=== PATIENT | male | born 1995 | race Caucasian/White ===

== ENCOUNTER 2019-01-03 01:39 | Emergency (ER) | payer OTHER ==
[2019-01-03 02:24] VITALS: BP 111/77; PULSE 68; TEMP 97.5; BMI 26.5
[2019-01-03] MEDS ORDERED: METOCLOPRAMIDE HCL INJECTION 10 MG/2 ML VIAL IM ONE (02:59)
[2019-01-03] MEDS ORDERED: ACETAMINOPHEN 325 MG TABLET (FP) PO ONE (02:59)
[2019-01-03] MEDS ORDERED: METOCLOPRAMIDE HCL INJECTION 10 MG/2 ML VIAL ONE (03:01)
[2019-01-03] MEDS ORDERED: ACETAMINOPHEN 325 MG TABLET (FP) ONE (03:01)
--- NOTE | 2019-01-03 03:16 | PDOC ---
History of Present Illness - General Chief Complaint: Lightheaded Stated Complaint: HIT HEAD,DIZZINES,HEADACHE Time Seen by Provider: 01/03/19 02:36 History Source: Patient Exam Limitations: No Limitations Past History - Past Medical History Allergies/Adverse Reactions: Allergies Allergy/AdvReac Type Severity Reaction Status Date / Time No Known Allergies Allergy Verified 01/03/19 01:54 Home Medications: Ambulatory Orders NK [No Known Home Medication] 01/03/19 COPD: No - Immunization History Immunization Up to Date: Yes - Suicide/Smoking/Psychosocial Hx Smoking History: Never smoked Have you smoked in the past 12 months: No Information on smoking cessation initiated: No Hx Alcohol Use: No Drug/Substance Use Hx: No *Physical Exam - Vital Signs Last Vital Signs Temp Pulse Resp BP Pulse Ox 97.5 F L 68 18 111/77 99 01/03/19 01:54 01/03/19 01:54 01/03/19 01:54 01/03/19 01:54 01/03/19 01:54 - Physical Exam General Appearance: No: Apparent Distress HEENT: positive: EOMI, VALDO Respiratory/Chest: positive: Lungs Clear, Normal Breath Sounds. negative: Respiratory Distress Cardiovascular: positive: Regular Rhythm, Regular Rate, S1, S2. negative: Murmur Gastrointestinal/Abdominal: positive: Normal Bowel Sounds, Soft. 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, Fully Oriented, Alert, Normal Mood/ Affect, Motor Strength 5/5, Other (negative Romberg test) ED Treatment Course - Medications Given in the ED: ED Medications Discontinued Medications Generic Name Dose Route Start Last Admin Trade Name Raimundo PRN Reason Stop Dose Admin Acetaminophen 975 mg 01/03/19 02:59 01/03/19 03:10 Tylenol - PO 01/03/19 03:00 975 mg ONCE ONE Administration Metoclopramide HCl 10 mg 01/03/19 02:59 01/03/19 03:10 Reglan Injection - IM 01/03/19 03:00 10 mg ONCE ONE Administration Medical Decision Making - Medical Decision Making 23 y/o M with no sig pmh presents with pressure like sensation along top of R side of head from 6 PM yesterday. MARI started of very mild in nature and then gradually worsened. Mentions when he leaned his head back, he felt like he was out of balance though denies lightheadedness or vertigo. MARI worse with lying down. Has not tried taking anything for MARI yet. Denies fever, visual/gait changes, sob, cp, n/v, numbness/tingling/weakness of extremities. Denies having HAs in the past. PE unremarkable with no focal deficits Not suspicious for ICH/subarachnoid hemorrhage Plan: Tylenol, Reglan, reassess 01/03/19 03:13 Patient feeling better after getting Tylenol; is requesting to go home Stable for dc 01/03/19 03:36 *DC/Admit/Observation/Transfer Diagnosis at time of Disposition: Headache Qualifiers: Headache type: unspecified Headache chronicity pattern: acute headache - Discharge Dispostion Disposition: HOME Condition at time of disposition: Improved Decision to Admit order: No - Referrals - Patient Instructions Printed Discharge Instructions: DI for Headache - Post Discharge Activity
--- NOTE | 2019-01-03 03:41 | PDOC ---
*Physical Exam - Vital Signs Last Vital Signs Temp Pulse Resp BP Pulse Ox 97.5 F L 68 18 111/77 99 01/03/19 01:54 01/03/19 01:54 01/03/19 01:54 01/03/19 01:54 01/03/19 01:54 ED Treatment Course - Medications Given in the ED: ED Medications Discontinued Medications Generic Name Dose Route Start Last Admin Trade Name Freq PRN Reason Stop Dose Admin Acetaminophen 975 mg 01/03/19 02:59 01/03/19 03:10 Tylenol - PO 01/03/19 03:00 975 mg ONCE ONE Administration Metoclopramide HCl 10 mg 01/03/19 02:59 01/03/19 03:10 Reglan Injection - IM 01/03/19 03:00 10 mg ONCE ONE Administration Medical Decision Making - Medical Decision Making 01/03/19 03:41 Case reviewed with XIMENA Farrell Agree with assessment and plan *DC/Admit/Observation/Transfer Diagnosis at time of Disposition: Headache Qualifiers: Headache type: unspecified Headache chronicity pattern: acute headache - Discharge Dispostion Disposition: HOME Condition at time of disposition: Improved - Referrals - Patient Instructions Printed Discharge Instructions: DI for Headache - Post Discharge Activity
== END 2019-01-03 03:42 | disposition home or self-care (01) ==
LOC: JER 01:39
PROC: 3E023GC Introduction of Other Therapeutic Substance into Muscle, Percutaneous Approach (ICD-10-PCS; principal; 2019-01-03)
DX: R51 Headache (principal)
CPT/HCPCS: 99281-25